=== PATIENT | male | born 1990 | race Caucasian/White ===

== ENCOUNTER 2024-05-05 04:09 | Emergency (ER) | payer BC ==
[~2024-05-05] VITALS: Ht 170.2 cm; Wt 93.0 kg
[2024-05-05 05:39] VITALS: BP 169/91; PULSE 96; RESP 18; TEMP 98; O2SAT 98
[2024-05-05 06:25] LABS: BASOPHILS % 0.9 % (0.0-2.0); EOSINOPHILS % 0.5 % (0.0-5.0); HEMATOCRIT. 41.1 % (42.0-52.0); HEMOGLOBIN. 14.4 g/dL (14.0-18.0); LYMPHOCYTES % 13.9 % (20.0-50.0); MEAN CORPUSCULAR HGB CONC 35.2 g/dL (31.0-37.0); MEAN CORPUSCULAR VOLUME 85.4 fL (80.0-94.0); MEAN PLATELET VOLUME 9.3 fl (7.4-10.4); MONOCYTES % 7.7 % (2.0-8.0); PLATELET 313 x1000/uL (130-400); RED BLOOD CELL COUNT 4.81 mill/uL (4.7-6.1); RED CELL DISTRIBUTION WIDTH 13.4 % (11.6-14.6); WHITE BLOOD COUNT 19.5 x1000/uL (4.5-11.0)
[2024-05-05] MEDS: LIDOCAINE HCL/EPINEPHRINE 1%-EPI 1:100,000 20 ML VIAL INFIL ONE (06:30)
[2024-05-05] MEDS: BACITRACIN ZINC OINT UDPKT TOP ONE (06:30)
[2024-05-05 06:43] LABS: CHLORIDE 103 mEq/L (98-107); POTASSIUM 3.4 mEq/L (3.5-5.1); SODIUM 136 mEq/L (136-145)
[2024-05-05 06:44] LABS: CALCIUM 9.8 mg/dL (8.7-10.4); CARBON DIOXIDE 27 mEq/L (21-32)
[2024-05-05 06:49] LABS: CREATININE 0.9 mg/dL (0.6-1.3); GLUCOSE 120 mg/dL (70-105); UREA NITROGEN BLOOD 10 mg/dL (9-23)
[2024-05-05] MEDS ORDERED: CEPH500C2 MT (09:16)
[2024-05-05] MEDS ORDERED: IBUP-2030 MT (09:16)
[2024-05-05] MEDS ORDERED: SULF1TAB48 MT (09:16)
== END 2024-05-05 10:21 | disposition home or self-care (01) ==
LOC: ER 04:28
DX: L02.211 Cutaneous abscess of abdominal wall (principal); Z91.018 Allergy to other foods
CPT/HCPCS: 80048; 85025; 36415; 10060; 99283; J3490; Z7610 ×2